=== PATIENT | female | born 1985 | race Caucasian/White ===

== ENCOUNTER 2016-10-23 15:07 | Emergency (ER) | payer OTHER ==
[~2016-10-23] VITALS: Ht 167.6 cm; Wt 59.7 kg
[~2016-10-23 15:07] MED LIST: BACTRIM,SEPT1 TABLET PO; CLINDAMYCIN HC300 MG PO; DOXYCYCLINE HY100 MG PO; FLEXERIL10 MG PO; KEFLEX500 MG PO; NAPROSYN500 MG PO; NAPROXEN500 MG PO; PERCOCET 5/31 TABLET PO; ROBITUSSIN AC,T10 ML PO; TAMIFLU75 MG PO; TRAMADOL HCL50 MG; TYLENOL WITH C1 EACH PO; ULTRAM50 MG PO; VALIUM5 MG PO; VENTOLIN HFA18 GM IH; ZOFRAN4 MG PO; no home med
[2016-10-23 15:47] LABS: POINT-OF-CARE METER ID UU13113778
[2016-10-23] MEDS ORDERED: METHADONE HCL40 MG PO (15:47)
[2016-10-23 17:47] LABS: HEMATOCRIT 37.1 % (36.0-46.0); MCH 29.1 PG (29.0-34.0); MCV 85.7 FL (83-99); PLATELET COUNT 312 K/uL (156-360); RBC DIS.WIDTH-SD 40.3 % (39-53); RED BLOOD COUNT 4.33 M/uL (3.80-5.20); WHITE BLOOD COUNT 7.3 K/uL (4.1-10.2)
[2016-10-23 17:58] LABS: CHLORIDE 108 mEq/L (99-109); POTASSIUM 4.2 mEq/L (3.7-5.4); SODIUM 140 mEq/L (136-147)
[2016-10-23 18:00] LABS: GLUCOSE 104 mg/dL (70-99)
[2016-10-23 18:02] LABS: ANION GAP 7 MEQ/L (2-14); TOTAL BILIRUBIN 0.2 mg/dL (0.0-1.0)
[2016-10-23 18:04] LABS: ALKALINE PHOSPHATASE 96 IU/L (3-129); GFR ESTIMATE (CALCULATED) > 59 mL/min/
[2016-10-23 18:05] LABS: UREA NITROGEN (BUN) 6 mg/dL (9-23)
[2016-10-23 18:07] LABS: ADD MIUA? YES; BILIRUBIN NEGATIVE; BLOOD NEGATIVE; COLOR YELLOW ((YELLOW)); GLUCOSE (STRIP) NEGATIVE; KETONES 5; LEUKOCYTES SMALL; NITRITE POSITIVE; PROTEIN (STRIP) NEGATIVE; SPECIFIC GRAVITY 1.017 (1.000-1.030)
[2016-10-23 19:22] LABS: RED BLOOD CELLS 0-5 /HPF (0-5)
[2016-10-23 19:23] LABS: BACTERIA 3+ /HPF; CALCIUM OXALATE CRYSTALS 2+ /HPF; CASTS NONE SEEN /LPF; CRYSTALS PRESENT; EPITHELIAL CELLS 1+ /HPF; MUCUS TRACE /LPF; UCUL ADDED? YES
[2016-10-23] MEDS ORDERED: PYRIDIUM100 MG PO (19:48)
[2016-10-23] MEDS ORDERED: COLACE100 MG PO (19:48)
[2016-10-23] MEDS ORDERED: MACROBID100 MG PO (19:48)
[2016-10-23 20:20] VITALS: BP 110/65
== END 2016-10-23 20:21 | disposition home or self-care (01) ==
LOC: EME 15:07
PROVIDERS: Nurse Practitioner Family
DX: N39.0 Urinary tract infection, site not specified (principal); K59.00 Constipation, unspecified; K08.89 Other specified disorders of teeth and supporting structures; G89.29 Other chronic pain; F11.20 Opioid dependence, uncomplicated; F17.200 Nicotine dependence, unspecified, uncomplicated
CPT/HCPCS: 74020; 80053; 81003; 82948; 85027; 87077; 87086; 87186; 99281; 99284

== ENCOUNTER 2017-03-18 09:15 | Emergency (ER) | payer OTHER ==
[~2017-03-18] VITALS: Ht 167.6 cm; Wt 56.3 kg
[~2017-03-18 09:15] MED LIST changes: +COLACE100 MG PO; +MACROBID100 MG PO; +METHADONE HCL40 MG PO; +PYRIDIUM100 MG PO
[2017-03-18 11:18] LABS: HEMATOCRIT 38.4 % (36.0-46.0); MCH 28.1 PG (29.0-34.0); MCHC 32.8 G/DL (30.0-36.0); MCV 85.5 FL (83-99); MEAN PLAT.VOLUME 10.2 uM^3 (9.5-12.4); PLATELET COUNT 355 K/uL (156-360); RBC DIS.WIDTH-CV 12.9 % (11.8-14.6); RBC DIS.WIDTH-SD 40.2 % (39-53); RED BLOOD COUNT 4.49 M/uL (3.80-5.20); WHITE BLOOD COUNT 7.1 K/uL (4.1-10.2)
[2017-03-18 11:41] LABS: CHLORIDE 106 mEq/L (99-109); POTASSIUM 3.7 mEq/L (3.7-5.4); SODIUM 140 mEq/L (136-147)
[2017-03-18 11:43] LABS: GLUCOSE 80 mg/dL (70-99)
[2017-03-18 11:44] LABS: ANION GAP 11 MEQ/L (2-14)
[2017-03-18 11:46] LABS: GFR ESTIMATE (CALCULATED) > 59 mL/min/
[2017-03-18 11:47] LABS: UREA NITROGEN (BUN) 5 mg/dL (9-23)
[2017-03-18 11:51] LABS: TROP-I INTERPRETATION NEGATIVE; TROPONIN-I < 0.01 ng/mL (0.0-0.30)
[2017-03-18 11:58] LABS: QUANTITATIVE HCG < 4.0 MIU/ML
[2017-03-18 13:14] VITALS: BP 119/79
== END 2017-03-18 13:17 | disposition left against medical advice (07) ==
LOC: EME 09:15
DX: R07.89 Other chest pain (principal); F17.200 Nicotine dependence, unspecified, uncomplicated
CPT/HCPCS: 71020; 80048; 84484; 84702; 85027; 93005; 99281; 99284; J1885

== ENCOUNTER 2017-03-24 00:38 | Emergency (ER) | payer OTHER ==
[~2017-03-24] VITALS: Ht 167.6 cm; Wt 60.0 kg
[2017-03-24] MEDS ORDERED: TORADOL10 MG PO (02:29)
[2017-03-24 02:47] VITALS: BP 133/87
== END 2017-03-24 02:48 | disposition home or self-care (01) ==
LOC: EME 00:38
DX: S30.0XXA Contusion of lower back and pelvis, initial encounter (principal); W01.10XA Fall on same level from slipping, tripping and stumbling with subsequent striking against unspecified object, initial encounter
CPT/HCPCS: 72100; 72220; 99281; 99283

== ENCOUNTER 2017-07-31 14:47 | Emergency (ER) | payer OTHER ==
[~2017-07-31] VITALS: Ht 165.1 cm; Wt 49.3 kg
[~2017-07-31 14:47] MED LIST changes: +TORADOL10 MG PO
[2017-07-31 14:51] VITALS: BP 138/69
[2017-07-31 16:06] LABS: HEMATOCRIT 38.6 % (36.0-46.0); MCH 28.8 PG (29.0-34.0); MCHC 33.4 G/DL (30.0-36.0); MCV 86.2 FL (83-99); MEAN PLAT.VOLUME 10.2 uM^3 (9.5-12.4); PLATELET COUNT 239 K/uL (156-360); RBC DIS.WIDTH-CV 13.8 % (11.8-14.6); RBC DIS.WIDTH-SD 43.4 % (39-53); RED BLOOD COUNT 4.48 M/uL (3.80-5.20); WHITE BLOOD COUNT 12.3 K/uL (4.1-10.2)
[2017-07-31 16:18] LABS: CHLORIDE 107 mEq/L (99-109); POTASSIUM 4.3 mEq/L (3.7-5.4); SODIUM 137 mEq/L (136-147)
[2017-07-31 16:20] LABS: GLUCOSE 103 mg/dL (70-99)
[2017-07-31 16:22] LABS: ANION GAP 7 MEQ/L (2-14); TOTAL BILIRUBIN 0.3 mg/dL (0.0-1.0)
[2017-07-31 16:23] LABS: SERUM ETHYL ALCOHOL < 10 mg/dL
[2017-07-31 16:24] LABS: ALKALINE PHOSPHATASE 71 IU/L (3-129); GFR ESTIMATE (CALCULATED) > 59 mL/min/
[2017-07-31 16:25] LABS: UREA NITROGEN (BUN) 9 mg/dL (9-23)
[2017-07-31 16:33] LABS: QUANTITATIVE HCG < 4.0 MIU/ML
== END 2017-07-31 16:38 | disposition left against medical advice (07) ==
LOC: EME 14:47
PROVIDERS: Emergency Medicine
DX: T50.991A Poisoning by other drugs, medicaments and biological substances, accidental (unintentional), initial encounter (principal); Z53.21 Procedure and treatment not carried out due to patient leaving prior to being seen by health care provider
CPT/HCPCS: 80053; 81003; 84702; 85027; 99281; 99283; G0480